=== PATIENT | male | born 1950 | race Caucasian/White ===

== ENCOUNTER 2023-09-15 08:19 | Outpatient (CLI) | payer OTHER, SELFPAY | END 2023-09-15 08:20 | disposition home or self-care (01) | LOC: RAD 08:26 | PROVIDERS: Visit Provider Chiropractor | DX: I25.10 Atherosclerotic heart disease of native coronary artery without angina pectoris (principal); I51.7 Cardiomegaly | CPT/HCPCS: 93306 ==